=== PATIENT | female | born 1945 | race African-American/Black ===

== ENCOUNTER 2016-10-11 16:45 | Emergency (ER) | payer OTHER ==
[~2016-10-11] VITALS: Ht 165.1 cm; Wt 94.8 kg
[~2016-10-11 16:45] MED LIST: AMLODIPINE BESY10 MG PO; B-121000 MC2 PO; DILTIAZEM 24HR240 M2 PO; HYZAAR 50-12.51 EACH PO; IRON325 PO; LANTUS SUBQ; LOTEMAX5 ML OPHTHALMIC; OCUVITE TABLET1 EAC1 PO; SPRYCEL100 MG PO; TIMOLOL GL0.5 %/5 M1 OP; TRAZODONE HCL100 MG PO
[2016-10-11] MEDS ORDERED: CARVEDILOL3.125 MG PO (16:48)
[2016-10-11] MEDS ORDERED: ATIVAN0.5 MG PO (16:53)
[2016-10-11] MEDS ORDERED: ZOFRAN ODT4 MG DISSOLVE (16:54)
[2016-10-11] MEDS ORDERED: PYRIDOXINE HCL100 MG PO (16:55)
[2016-10-11] MEDS ORDERED: KEFLEX500 MG PO (17:26)
== END 2016-10-11 17:41 | disposition home or self-care (01) ==
LOC: ER 16:45
DX: E10.621 Type 1 diabetes mellitus with foot ulcer (principal); L97.419 Non-pressure chronic ulcer of right heel and midfoot with unspecified severity; I10 Essential (primary) hypertension; Z85.6 Personal history of leukemia; Z90.710 Acquired absence of both cervix and uterus; Z87.891 Personal history of nicotine dependence

== ENCOUNTER → 2017-02-22 | Outpatient (CLI) | payer OTHER ==
[~2017-02-22] MED LIST changes: +ATIVAN0.5 MG PO; +CARVEDILOL3.125 MG PO; +KEFLEX500 MG PO; +PYRIDOXINE HCL100 MG PO; +ZOFRAN ODT4 MG DISSOLVE
== END ==
LOC: RAD 04:30
DX: Z12.31 Encounter for screening mammogram for malignant neoplasm of breast (principal)

== ENCOUNTER 2017-07-27 13:26 | Emergency (ER) | payer OTHER ==
[~2017-07-27] VITALS: Ht 162.6 cm; Wt 81.7 kg
[2017-07-27] MEDS ORDERED: TESSALON PERLE100 MG PO (15:42)
[2017-07-27 15:50] VITALS: BP 144/82
[2017-11-03] MEDS ORDERED: COZAAR 50 MG TA50 M1 PO (14:49)
[2017-11-03] MEDS ORDERED: ADULT LOW DOSE81 MG PO (14:50)
[2017-11-04] MEDS ORDERED: ZOSYN 3.3753.375 GM IV (12:03)
== END 2017-07-27 15:50 | disposition home or self-care (01) ==
LOC: ER 13:26
DX: J06.9 Acute upper respiratory infection, unspecified (principal); E10.9 Type 1 diabetes mellitus without complications; I10 Essential (primary) hypertension; Z90.710 Acquired absence of both cervix and uterus; Z87.891 Personal history of nicotine dependence

== ENCOUNTER 2017-11-11 19:47 | Observation (INO) | payer OTHER ==
[~2017-11-11] VITALS: Ht 162.6 cm; Wt 99.8 kg
[~2017-11-11 19:47] MED LIST changes: +ADULT LOW DOSE81 MG PO; +COZAAR 50 MG TA50 M1 PO; +TESSALON PERLE100 MG PO; +ZOSYN 3.3753.375 GM IV
[2017-11-11 20:46] VITALS: BP 189/68
[2017-11-11 21:20] LABS: BASOPHILS 0.4 % (0.0-2.0); EOSINOPHILS 1.4 % (0.0-3.0); HEMOGLOBIN 6.8 gm/dL (12.0-15.0); LYMPHOCYTES 35.5 % (24.0-44.0); MCH 30.2 pg (26.0-34.0); MCHC 33.9 g/dL (28.0-37.0); MCV 89.1 fL (80.0-100.0); MONOCYTES 11.6 % (1.0-8.0); PLATELET COUNT 149 thou/uL (150-400); POLYS 51.1 % (36.0-66.0); RBC 2.25 mil/uL (4.20-5.00); RDW 15.2 % (10.5-14.5); WBC 5.9 thou/uL (4.0-11.0)
[2017-11-11 21:34] LABS: APTT 28.7 Seconds (24.5-32.8); PROTIME 10.7 Seconds (9.3-11.4)
[2017-11-11 21:35] LABS: CALCIUM 9.5 mg/dL (8.5-10.1); CREATININE 2.2 mg/dL (0.6-1.0)
[2017-11-11 21:40] LABS: ALBUMIN 3.1 g/dL (3.4-5.0); TOTAL BILIRUBIN 0.3 mg/dL (<0.1-1.0); TOTAL PROTEIN 7.3 g/dL (6.4-8.2)
[2017-11-11 23:08] VITALS: BP 158/76
[2017-11-12] VITALS (7 sets, daily range): BP systolic 176–194; BP diastolic 79–85
[2017-11-12 04:37] LABS: HEMATOCRIT 21.9 % (37.0-47.0); HEMOGLOBIN 7.4 gm/dL (12.0-15.0); MCH 30.5 pg (26.0-34.0); MCV 89.7 fL (80.0-100.0); RBC 2.44 mil/uL (4.20-5.00); RDW 15.1 % (10.5-14.5); WBC 5.6 thou/uL (4.0-11.0)
[2017-11-12 04:47] LABS: CALCIUM 9.3 mg/dL (8.5-10.1); CREATININE 2.1 mg/dL (0.6-1.0); POTASSIUM 3.9 mmol/L (3.5-5.1)
[2017-11-12] MEDS ORDERED: ONDANSETRON HCL4 M2 PO (05:20)
[2017-11-12] MEDS ORDERED: ACIDOPHILUS1 EAC3 PO (05:21)
[2017-11-12] MEDS ORDERED: VITAMIN D3400 UNIT PO (05:23)
[2017-11-12] MEDS ORDERED: PERCOCET PO (05:24)
[2017-11-12] MEDS ORDERED: TIMOLOL GL0.5 %/5 M1 OPHTHALMIC (05:27)
[2017-11-12 06:45] LABS: HEMATOCRIT 22.2 % (37.0-47.0); HEMOGLOBIN 7.6 gm/dL (12.0-15.0)
== END 2017-11-12 13:05 | disposition home or self-care (01) ==
LOC: ER 19:47 → EROBS 20:37 → 4E 23:04
PROVIDERS: Emergency Medicine; Hospitalist; Nurse Practitioner Family
DX: D50.0 Iron deficiency anemia secondary to blood loss (chronic) (principal); C91.10 Chronic lymphocytic leukemia of B-cell type not having achieved remission; I12.9 Hypertensive chronic kidney disease with stage 1 through stage 4 chronic kidney disease, or unspecified chronic kidney disease; E10.22 Type 1 diabetes mellitus with diabetic chronic kidney disease; E10.65 Type 1 diabetes mellitus with hyperglycemia; N18.9 Chronic kidney disease, unspecified; Z87.891 Personal history of nicotine dependence

== ENCOUNTER 2019-02-01 12:00 | Emergency (ER) | payer OTHER ==
[~2019-02-01] VITALS: Ht 165.1 cm; Wt 97.5 kg
[~2019-02-01 12:00] MED LIST changes: +ACIDOPHILUS1 EAC3 PO; +ONDANSETRON HCL4 M2 PO; +PERCOCET PO; +TIMOLOL GL0.5 %/5 M1 OPHTHALMIC; +VITAMIN D3400 UNIT PO
[2019-02-01 15:31] VITALS: BP 134/72
== END 2019-02-01 16:47 | disposition home or self-care (01) ==
LOC: ER 12:00
DX: Z00.00 Encounter for general adult medical examination without abnormal findings (principal); I10 Essential (primary) hypertension; E10.9 Type 1 diabetes mellitus without complications; Z90.710 Acquired absence of both cervix and uterus; Z87.891 Personal history of nicotine dependence

== ENCOUNTER 2019-08-10 18:00 | Emergency (ER) | payer OTHER ==
[~2019-08-10] VITALS: Ht 162.6 cm; Wt 95.3 kg
[2019-08-10] MEDS ORDERED: AUGMENTIN 500-1 EACH PO (19:58)
[2019-08-10] MEDS ORDERED: CORICIDIN COLD1 EACH PO (19:58)
[2019-08-10 20:06] VITALS: BP 180/93
== END 2019-08-10 20:23 | disposition home or self-care (01) ==
LOC: ER 18:00
DX: J32.9 Chronic sinusitis, unspecified (principal); I10 Essential (primary) hypertension; E10.9 Type 1 diabetes mellitus without complications; Z90.710 Acquired absence of both cervix and uterus; Z79.4 Long term (current) use of insulin; Z87.891 Personal history of nicotine dependence

== ENCOUNTER 2020-08-18 20:07 | Emergency (ER) | payer OTHER ==
[~2020-08-18] VITALS: Ht 162.6 cm; Wt 93.9 kg
[~2020-08-18 20:07] MED LIST changes: +AUGMENTIN 500-1 EACH PO; +CORICIDIN COLD1 EACH PO
[2020-08-18 20:09] VITALS: BP 190/92
== END 2020-08-18 21:55 | disposition home or self-care (01) ==
LOC: ER 20:07
DX: M72.2 Plantar fascial fibromatosis (principal); I10 Essential (primary) hypertension; E10.9 Type 1 diabetes mellitus without complications; Z87.891 Personal history of nicotine dependence; Z79.899 Other long term (current) drug therapy; Z90.710 Acquired absence of both cervix and uterus

== ENCOUNTER 2021-06-27 15:36 | Emergency (ER) | payer OTHER ==
[~2021-06-27] VITALS: Ht 165.1 cm; Wt 88.9 kg
[2021-06-27] MEDS ORDERED: NORCO5 PO (16:43)
[2021-06-27] MEDS ORDERED: BACTRIM DS TAB1 EACH PO (16:43)
[2021-06-27 17:30] VITALS: BP 193/83
== END 2021-06-27 17:33 | disposition home or self-care (01) ==
LOC: ER 15:36
DX: E10.621 Type 1 diabetes mellitus with foot ulcer (principal); L97.528 Non-pressure chronic ulcer of other part of left foot with other specified severity; L03.116 Cellulitis of left lower limb; I10 Essential (primary) hypertension; F12.90 Cannabis use, unspecified, uncomplicated; Z90.710 Acquired absence of both cervix and uterus; Z98.890 Other specified postprocedural states; Z79.1 Long term (current) use of non-steroidal anti-inflammatories (NSAID); Z79.4 Long term (current) use of insulin; Z79.899 Other long term (current) drug therapy; Z87.891 Personal history of nicotine dependence